=== PATIENT | male | born 1985 | race African-American/Black ===

== ENCOUNTER 2021-01-13 18:07 | Emergency (ER) | payer OTHER ==
[~2021-01-13 18:07] MED LIST: Iopamidol-370 76% 500 ML 1 ML ONE
[2021-01-13] MEDS ORDERED: Boostrix 0.5 ML (Tdap) VIAL ONE (18:10)
[2021-01-13] MEDS ORDERED: ceFAZolin 2 GM/Dextrose 50 ML IVPB ONE (18:10)
[2021-01-13 18:33] LABS: #Lymphocytes 1.4 thou/uL (1.20-3.40); #Monocytes 0.7 thou/uL (0.11-0.59); #Neutrophils 5.2 thou/uL (1.40-6.50); %Basophils 0.5 % (0.0-1.0); %Eosinophils 0.4 % (0.0-10.0); %Lymphocytes 18.5 % (21.0-51.0); %Monocytes 9.8 % (0.0-10.0); %Neutrophils 70.8 % (42.0-75.0); Mean Corpuscular HGB CONC 34.7 g/dL (32.0-36.0); Mean Corpuscular Volume 95.1 fL (78.0-98.0); Mean Platelet Volume 6.5 fL (7.4-10.4); Platelet Count 279 thou/uL (130-400); RBC Distribution Width 11.2 % (11.5-14.5); Red Blood Cell (RBC) Count 4.54 mill/uL (4.70-6.10); White Blood Cell (WBC) Count 7.3 thou/uL (4.8-10.8)
[2021-01-13 18:44] LABS: ALT (SGPT) 16 U/L (8-55); AST (SGOT) 15 U/L (5-34); Albumin 4.5 g/dL (3.5-5.0); Alkaline Phosphatase 81 U/L (40-110); Anion Gap 14 mmol/L (10-20); BUN (Urea Nitrogen) 12 mg/dL (8.9-20.6); Calc. Creatinine Clearance 0 mL/min (70-130); Calcium 9.6 mg/dL (7.8-10.44); Carbon Dioxide 24 mmol/L (22-29); Chloride 104 mmol/L (98-107); Globulin 2.9 g/dL (2.4-3.5); Glucose 111 mg/dL (70-105); Potassium 3.7 mmol/L (3.5-5.1); Protein, Total 7.4 g/dL (6.0-8.3); Sodium 138 mmol/L (136-145)
[2021-01-13] MEDS ORDERED: Bupivacaine 0.25% 10 ML VIAL ONE (20:01)
== END 2021-01-13 21:00 ==
LOC: ERS 18:07 → EEVIPCON 18:07 → ERS 21:00
DX: S11.91XA Laceration without foreign body of unspecified part of neck, initial encounter (principal); X78.8XXA Intentional self-harm by other sharp object, initial encounter
CPT/HCPCS: 12002; 36415; 70450; 70498; 71045; 80053; 83605; 85025; 86850; 86900; 86901; 90471; 90715; 96365; G0390; J0690; Q9967; S0020